=== PATIENT | female | born 1975 | race African-American/Black ===

== ENCOUNTER 2022-04-07 16:42 | Outpatient (CLI) | payer OTHER | END 2022-04-07 16:43 | disposition home or self-care (01) | LOC: CSHRAD 16:42 | PROVIDERS: ATTEND Internal Medicine | DX: M79.644 Pain in right finger(s) (principal) ==

== ENCOUNTER 2022-04-07 18:26 | Emergency (ER) | payer OTHER ==
[2022-04-07] MEDS ORDERED: Ketorolac Tromethamine 30 MG/ML VIAL ONE (20:32)
== END 2022-04-07 20:54 | disposition home or self-care (01) ==
LOC: CSHERS 18:26
DX: M25.512 Pain in left shoulder (principal); E11.9 Type 2 diabetes mellitus without complications; I10 Essential (primary) hypertension; Z86.73 Personal history of transient ischemic attack (TIA), and cerebral infarction without residual deficits; M79.644 Pain in right finger(s)
CPT/HCPCS: 96372; 99283; J1885

== ENCOUNTER 2022-05-27 13:31 | Emergency (ER) | payer OTHER ==
[~2022-05-27 13:31] MED LIST: Iopamidol 370 76% 100 ML VIAL ONE
[2022-05-27 14:23] LABS: #Basophils 0.1 10x3/uL (0.0-0.2); #Eosinphils 0.1 10x3/uL (0.0-0.5); #Monocytes 0.7 10x3/uL (0.0-1.1); #Neutrophils 9.1 10x3/uL (1.5-8.4); %Basophils 0.4 % (0.0-2.0); %Eosinophils 0.4 % (0.0-6.0); %Lymphocytes 12.7 % (18.0-47.0); %Monocytes 6.1 % (0.0-10.0); %Neutrophils 79.9 % (40.0-75.0); Hemoglobin 13.9 g/dL (12.0-15.5); Mean Corpuscular Volume 91.3 fl (81.6-98.3); Mean Platelet Volume 10.7 fl (7.4-10.4); Platelet Count 259 10x3/uL (150-450); Red Blood Cell (RBC) Count 4.48 10x6/uL (3.90-5.03); White Blood Cell (WBC) Count 11.4 10x3/uL (3.5-10.5)
[2022-05-27 14:43] LABS: SARS-CoV-2 NAA Rapid Test Not Detected (NotDetected)
[2022-05-27 14:53] LABS: ALT (SGPT) 15 U/L (8-55); AST (SGOT) 17 U/L (5-34); Albumin 4.2 g/dL (3.5-5.0); Alkaline Phosphatase 145 U/L (40-110); Anion Gap 16 mmol/L (10-20); BUN (Urea Nitrogen) 5 mg/dL (7.0-18.7); Bilirubin, Total 0.4 mg/dL (0.2-1.2); Calc. Creatinine Clearance 0 mL/min (70-130); Calcium 9.9 mg/dL (7.8-10.44); Carbon Dioxide 26 mmol/L (22-29); Chloride 99 mmol/L (98-107); Estimated GFR 97; Globulin 4.7 g/dL (2.4-3.5); Glucose 267 mg/dL (70-105); Potassium 3.4 mmol/L (3.5-5.1); Protein, Total 8.9 g/dL (6.0-8.3); Sodium 138 mmol/L (136-145)
[2022-05-27] MEDS ORDERED: Morphine 4 MG/ML VIAL ONE ×2 (16:51→18:23)
== END 2022-05-27 19:19 | disposition home or self-care (01) ==
LOC: CSHERS 13:31
DX: J18.9 Pneumonia, unspecified organism (principal); E11.65 Type 2 diabetes mellitus with hyperglycemia; I10 Essential (primary) hypertension; Z86.718 Personal history of other venous thrombosis and embolism; F17.200 Nicotine dependence, unspecified, uncomplicated; Z20.822 Contact with and (suspected) exposure to COVID-19
CPT/HCPCS: 36415; 36416; 71045; 71275; 80053; 82010; 84484; 85025; 93005; 96374; 96375; 96376; J1956; J2270; Q9967

== ENCOUNTER 2023-02-16 11:32 | Emergency (ER) | payer OTHER ==
[2023-02-16] MEDS ORDERED: Ibuprofen 200 MG TAB ONE (14:26)
[2023-02-16] MEDS ORDERED: HYDROcodone/Acetaminophen 5/325 mg Tablet ONE (14:26)
== END 2023-02-16 14:52 | disposition home or self-care (01) ==
LOC: CSHERS 11:32
DX: S66.911A Strain of unspecified muscle, fascia and tendon at wrist and hand level, right hand, initial encounter (principal); S63.8X1A Sprain of other part of right wrist and hand, initial encounter; S60.221A Contusion of right hand, initial encounter; F17.210 Nicotine dependence, cigarettes, uncomplicated; E11.9 Type 2 diabetes mellitus without complications; I10 Essential (primary) hypertension; W18.30XA Fall on same level, unspecified, initial encounter